=== PATIENT | female | born 1935 | race Caucasian/White ===

== ENCOUNTER → 2016-08-05 | Outpatient (CLI) | payer OTHER, BC ==
--- NOTE | 2016-08-05 16:24 | MA ---
Screening Digital Mammogram With iCAD Analysis Clinical Indications: Routine screening. The patient has had a benign left breast stereotactic biopsy . Technique: Standard cephalocaudal and mediolateral oblique projections were obtained. This examinatio n was processed by the iCAD computer aided detection system. Comparison: June 2015, June 2014, May 2013, May 2012, May 2011, November 2010, 2010. Breast density: Type B; Scattered fibroglandular densities. Findings: CAD was reviewed. No masses, suspicious calcifications or other signs of malignancy are id entified. There has been no significant change in the appearance of either breast. Vascular calcifi cations are noted. Impression: Negative mammogram. BI-RADS 1. Recommendation: Routine mammographic screening in one year. [facility] will send a result letter to the patient. Negative mammography should not preclude additional workup of a clinically suspicious finding. The patient's information is entered into a reminder system with a target due date for her next mammo gram.
== END ==
LOC: BRMIMAGING 13:10
DX: Z12.31 Encounter for screening mammogram for malignant neoplasm of breast (principal)
CPT/HCPCS: G0202

== ENCOUNTER → 2018-07-22 | Day surgery (SDC) | payer OTHER, BC ==
[~2018-07-22] MED LIST: ALBUTEROL 3 ML DEYVIAL IH PRN; ATROPINE SULFATE 1 MG/10 ML SYR IVP ONE; BENZOCAINE UNIT DOSE SPRAY HURRICAINE MM ONE; ETOMIDATE 40 MG/20 ML INJ ONE; LIDOCAINE 2% 2 ML INJ ONE; METOPROLOL TARTRATE 5 MG/5 ML INJ ONE; MIDAZOLAM 2 MG/2 ML VIAL IVP ONE; NALOXONE HCL 0.4 MG/ML INJ IVP PRN; NS 500 ML IV ONE; PROPOFOL 200 MG/20 ML VIAL ONE; fentaNYL 100 MCG/2 ML INJ IVP ONE; fentaNYL 100 MCG/2 ML INJ IVP PRN
[2018-07-22 10:49] LABS: INR 1.84 (0.83-1.16); PROTIME(PATIENT) 21.3 SEC (12.0-15.0)
--- NOTE | 2018-07-22 12:39 | PDHPUP ---
History & Physical Update H&P update statement: This history and physical update is based on an assessment of the patient which was completed after admission or registration (within 24 hours), but prior to the surgery/procedure. H&P update: H&P reviewed & patient examined, no change in patient's condition since H&P completed
--- NOTE | 2018-07-22 12:47 | PDANEPAE ---
ANE History of Present Illness aflut ANE Past Medical History - Cardiovascular History Hx Hypertension: No Hx Arrhythmias: Yes Hx Chest Pain: No Hx Coronary Artery / Peripheral Vascular Disease: No Hx CHF / Valvular Disease: Yes Hx Palpitations: Yes - Pulmonary History Hx COPD: No Hx Asthma/Reactive Airway Disease: No Hx Recent Upper Respiratory Infection: No Hx Oxygen in Use at Home: No Hx Sleep Apnea: No - Neurologic History Hx Cerebrovascular Accident: No Hx Seizures: No Hx Dementia: No - Endocrine History Hx Diabetes: No Hypothyroid: No Hyperthyroid: No Obesity: no - Renal History Hx Renal Disorders: No - Liver History Hx Hepatic Disorders: No - Neurological & Psychiatric Hx Hx Neurological and Psychiatric Disorders: No ANE Review of Systems Review of Systems: - Exercise capacity Exercise capacity: >=4 METS ANE Patient History - Allergies Allergies/Adverse Reactions: No Allergies [NKDA] Allergy (Verified 12/11/10 15:53) - Home Medications Home medications: home medication list seen and reviewed Home Medications: Furosemide 20 mg PO 07/22/18 [Last Taken 07/22/18] Levothyroxine [Synthroid 50 mcg (*)] 07/22/18 [Last Taken 07/21/18] Potassium Cl 10 07/22/18 [Last Taken 07/21/18] Warfarin Sodium 2 mg PO TUTHSA 07/22/18 [Last Taken 07/20/18] Warfarin Sodium 4 mg PO EVERY OTHER DAY 07/22/18 [Last Taken 07/21/18] - NPO status NPO Status: no food or drink >8 hours - Anes Hx Anes Hx: no prior problems ANE Labs/Vital Signs - Labs Result Diagrams: 07/22/18 10:15 - Vital Signs Height: 170.18 cm Weight: 49.9 kg ANE Physical Exam - Airway Mallampati Score: Class 2 Mouth exam: normal dental/mouth exam - Pulmonary Pulmonary: no respiratory distress - Cardiovascular Cardiovascular: irregularly irregular - ASA Status ASA Status: II ANE Anesthesia Plan Anesthesia Plan: GA with mask
--- NOTE | 2018-07-22 13:04 | PDTEE1 ---
GAYLE Cardioversion Procedure Procedure: electrical cardioversion, transesophageal echo Indications: other (atrial flutter) Procedural Details: Sedation provided by Dr. Villarreal. Pads were placed in anterior-posterior position. GAYLE probe was advanced and standard images obtained. There is no evidence of left atrial or left atrial appendage thrombus. LVEF 40%. Moderate MR; moderate to severe TR Synchronized cardioversion attempt #1: 200J Results: normal sinus rhythm Conclusions: successful cardioversion
--- NOTE | 2018-07-22 13:07 | POSTANESTH ---
Post Anesthetic Evaluation Cardiovascular Status: Normal, Stable Respiratory Status: Normal, Stable Level of Consciousness/Mental Status: Can Participate in Eval Pain Control: Adequate, Prn Tx Ordered Nausea/Vomiting Control: Adequate, Prn Tx Ordered Complications Possibly Related to Anesthesia: None Noted
--- NOTE | 2018-07-22 14:40 | CPEKG ---
Test Reason : OPEN Blood Pressure : / mmHG Vent. Rate : 122 BPM Atrial Rate : 122 BPM P-R Int : 102 ms QRS Dur : 111 ms QT Int : 379 ms P-R-T Axes : 097 -41 -48 degrees QTc Int : 540 ms Sinus tachycardia Left axis deviation Nonspecific T abnormalities, inferior leads Prolonged QT interval Confirmed by Oliver Elizalde ([id number]) on 07/22/2018 2:39:51 PM Referred By: Confirmed By:Oliver Elizalde
--- NOTE | 2018-07-22 14:42 | CPEKG ---
Test Reason : OPEN Blood Pressure : / mmHG Vent. Rate : 087 BPM Atrial Rate : 086 BPM P-R Int : 156 ms QRS Dur : 081 ms QT Int : 408 ms P-R-T Axes : 086 039 025 degrees QTc Int : 491 ms Sinus rhythm Atrial premature complex Non-specific ST depression lateral leads. Borderline prolonged QT interval Confirmed by Oliver Elizalde ([id number]) on 07/22/2018 2:42:00 PM Referred By: Confirmed By:Oliver Elizalde
--- NOTE | 2018-07-22 15:44 | ECHO ---
[email or web address] [address] [address] Main: [phone] Fax: Transesophageal Echocardiography Name: ANGELA PAYAN MR#: [id number] Study Date: 07/22/2018 Study Time: 11:55 AM Date of : 1935 Age: 82 year(s) Height: ( ) Weight: ( ) BSA: Gender: Female Examination: GAYLE Indication: Pre Cardioversion Image Quality: Contrast: Requested by: Christiano Singh Heart Rate: Rhythm: Atrial flutter BP: / Procedure Staff Carpenters: Roderick Hardy RDCS Reading Physician: Aleida Mcfadden MD Requesting Provider: GAYLE Exam Details Conclusions: The ejection fraction is visually estimated to be 40 %. The left atrium is moderately to severely dilated. An agitated saline study was performed and was negative for intracardiac shunting. No thrombus in left appendage. The right atrium is moderately to severely dilated. There are 2 central jets of moderate MR.. Moderate to severe tricuspid valve regurgitation. Mild plaque in the descending aorta. Proceeded with successful elective DC cardioversion.. Measurements: Chambers Valvular Assessment AV/MV Valvular Assessment TV/PV Normal Normal Normal Name Value Range Name Value Range Name Value Range Visual EF: 40 % Additional Measurements: Findings: Left Ventricle: The ejection fraction is visually estimated to be 40 %. Right Ventricle: Normal RV function. Patient: ANGELA PAYAN Study Date: 07/22/2018 Page 1 of 2 11:55 AM Left Atrium: The left atrium is moderately to severely dilated. An agitated saline study was performed and was negative for intracardiac shunting. Left Atrial Appendage: Good color flow doppler in the left atrial appendage. No thrombus in left appendage. Right Atrium: The right atrium is moderately to severely dilated. Mitral Valve: There are 2 central jets of moderate MR.. Aortic Valve: The aortic valve is tri-leaflet. There is no significant aortic valve regurgitation. No aortic valve stenosis is present. Tricuspid Valve: Moderate to severe tricuspid valve regurgitation. Pulmonic Valve: The pulmonic valve is normal in appearance and function. Aorta: Mild plaque in the descending aorta. Pericardium: No pericardial effusion. Exam Comments: Proceeded with successful elective DC cardioversion.. l1n (No Signature Object) Patient: ANGELA PAYAN Study Date: 07/22/2018 Page 2 of 2 11:55 AM [id number]
== END | disposition home or self-care (01) ==
LOC: FCATH 09:47
PROVIDERS: ATTEND Internal Medicine Cardiovascular Disease
PROC: 5A2204Z Restoration of Cardiac Rhythm, Single (ICD-10-PCS; principal; 2018-07-22)
PROC: B245ZZ4 Ultrasonography of Left Heart, Transesophageal (ICD-10-PCS; principal; 2018-07-22)
DX: I48.92 Unspecified atrial flutter (principal); I34.0 Nonrheumatic mitral (valve) insufficiency; I43 Cardiomyopathy in diseases classified elsewhere; D68.61 Antiphospholipid syndrome; Z79.01 Long term (current) use of anticoagulants; E03.9 Hypothyroidism, unspecified
CPT/HCPCS: J2250; J2704; J3010

== ENCOUNTER → 2019-01-10 | Outpatient (CLI) | payer OTHER, BC | LOC: BHFA 13:15 ==